=== PATIENT | female | born 1980 | race Caucasian/White ===

== ENCOUNTER 2024-12-01 15:36 | Emergency (ER) | payer OTHER, SELFPAY ==
[2024-12-01 15:45] VITALS: BP 167/96
[2024-12-01 16:07] LABS: % Basophils 0.5 % (0-2); % Immature Granulocytes 0.2 % (0-0.5); % Lymphocytes 36.2 % (20.5-51.1); % Monocytes 5.1 % (1.7-9.3); Absolute Basophils 0.1 10^3/uL (0-0.2); Absolute Eosinophils 0.1 10^3/uL (0-0.7); Absolute Monocytes 0.6 10^3/uL (0.1-0.6); Absolute Neutrophils 6.3 10^3/uL (1.4-6.5); Hematocrit 39.2 % (37.0-47.0); Hemoglobin 12.7 g/dL (12.0-16.0); Mean Corp Hgb Conc. 32.4 g/dL (33.0-37.0); Mean Corpuscular Hgb 25.8 pg (27.0-31.0); Mean Corpuscular Volume 79.5 fL (81.0-99.0); Mean Platelet Volume 11.3 fL (7.4-10.4); Nucleated Red Blood Cells % 0 %; Platelet Count 290 10^3/uL (130-400); Red Blood Cell Count 4.93 10^6/uL (4.20-5.40); Red Cell Dist. Width 13.8 % (11.5-14.5)
[2024-12-01 16:10] LABS: Urine Albumin Negative (Neg - Trace); Urine Bilirubin Negative (Negative); Urine Character Clear (Clear); Urine Color Yellow; Urine Glucose Negative (Negative); Urine Ketone 2+ (Negative); Urine Leukocyte Negative (Negative); Urine Nitrite Negative (Negative); Urine Occult Blood Negative (Negative); Urine Specific Gravity 1.025 (<1.030); Urine Urobilinogen Negative (Neg - 1+)
[2024-12-01 16:23] LABS: HCG, Serum Qualitative Screen Negative
[2024-12-01 16:29] LABS: ALT (SGPT) 16 U/L (0-35); AST (SGOT) 18 U/L (14-36); Albumin 4.4 g/dl (3.5-5.0); Alkaline Phosphatase 69 U/L (38-126); Blood Urea Nitrogen 11 mg/dl (7-17); Calcium 9.5 mg/dl (8.4-10.2); Carbon Dioxide 24 mmol/L (22-30); Chloride 108 mmol/L (98-107); Glucose 116 mg/dl (70-99); Lipase 66 U/L (23-300); Potassium 4.7 mmol/L (3.5-5.1); Sodium 140 mmol/L (135-145); Total Bilirubin 0.9 mg/dl (0.2-1.3); Total Protein 8.1 g/dl (6.3-8.2); eGFR > 60.00
[2024-12-01 17:18] VITALS: BMI 48.2
[2024-12-01 17:26] VITALS: BP 140/83
[2024-12-01 18:00] VITALS: BP 135/85
--- NOTE | 2024-12-01 18:10 | ED.GENMED ---
History of Present Illness
General
Chief Complaint: Abdominal Pain
Source: patient
Exam Limitations: none
Time Seen by Provider: 12/01/24 17:59
Nursing documentation reviewed up to this point in time: agreed with
History of Present Illness
History of Present Illness:
see MDM
Past History
Past History
ED Past Medical History: Other (gastric bypass) and Other (stomach ulcers, depression)
ED Past Surgical History: Other (amrit en y)
Social History
Tobacco: Non-smoker
Alcohol: Occasional
Drug: None
Personal:
Review of Systems
Review of Systems
Allergies reviewed?: Yes
All Other Systems: Not applicable
Phy Exam
Physical Exam
Physical Exam:
GENERAL: Alert , in no apparent distress
EYE: pupils equal and reactive
NECK: Supple
ENT: o/p clr, mmm.
CARDIAC: Regular rate and rhythm .
LUNGS: Clear breath sounds bilaterally, no acute respiratory distress, no wheezes/rales/rhonchi
ABDOMEN: Soft, moderate left upper quadrant tenderness s, no r/g, no cvat, normal bowel sounds
NEUROLOGICAL: Alert and oriented, no focal neuro deficits
SKIN: Warm and dry, skin intact.
MUSCULOSKELETAL: No edema, well perfused. neg sarah's sign
PSYCH: Normal and appropriate interaction.
Course
Orders/Labs/Results
Orders:
Orders
12/01/24 15:50
Test Result ONCE
12/01/24 16:00
Complete Blood Count/With Diff Urgent
Comprehensive Metabolic Panel Urgent
HCG, Serum Qualitative Screen Urgent
Comment: Notify provider if positive test present
Lipase Urgent
Urinalysis Reflex To Culture Urgent
Date Specimen was Collected: 12/01/24
Time Specimen was Collected: 15:50
12/01/24 18:37
0.9% Sodium Chloride 1000 ml [Nss] 1,000 ml IV BOLUS
Iohexol [Omnipaque] See Protocol PO NOW STA
Ondansetron Injectable [Zofran] 4 mg IV NOW STA
Pantoprazole [Protonix IV] 40 mg IV NOW STA
12/01/24 18:38
CT Abd/pel W Iv And Oral Contr Urgent
Comment:
Reason For Exam: luq pain, vomiting; h/o amrit en y
Abnormal Lab Results
12/01/24
16:00
WBC 11.0 H 10^3/uL
(4.8-10.8)
MCV 79.5 L fL
(81.0-99.0)
MCH 25.8 L pg
(27.0-31.0)
MCHC 32.4 L g/dL
(33.0-37.0)
MPV 11.3 H fL
(7.4-10.4)
Absolute Lymphs (auto) 4.0 H 10^3/uL
(1.2-3.4)
Chloride 108 H mmol/L
(98-107)
Glucose 116 H mg/dl
(70-99)
Urine Ketones 2+ A
(Negative)
12/01/24 16:00
12/01/24 16:00
Vital Signs
Initial and Last Documented VS:
Initial Vital Signs
Temp Pulse Resp BP Pulse Ox
36.9 C 104 18 167/96 100
12/01/24 15:45 12/01/24 15:45 12/01/24 15:45 12/01/24 15:45 12/01/24 15:45
Last Documented Vital Signs
Temp Pulse Resp BP Pulse Ox
37.1 C 77 20 145/86 98
12/01/24 21:08 12/01/24 21:08 12/01/24 21:08 12/01/24 21:08 12/01/24 22:00
MDM/Problems Addressed
Differential Diagnosis Includes:
see MDM
MDM/Problems Addressed:
Note:
CHIEF COMPLAINT(S)
Intermittent sharp left-sided abdominal pain with associated vomiting.
HISTORY OF PRESENT ILLNESS
The patient is a 44-year-old female with a history of gastric bypass surgery and stomach ulcers who presents with intermittent sharp pain in the left side of her abdomen, accompanied by vomiting. The symptoms began yesterday, with the pain preceding
the vomiting episodes. The patient notes the pain started while she was awake and increased in intensity throughout the day. She attempted to eat a mini bagel in the morning, thinking it might ease her symptoms, and later consumed some wallace janeth.
Following these attempts, she experienced emesis, but reported momentary relief afterward.
The patient describes the pain as initially sharp, becoming dull but recurrently sharp again, notably exacerbating around 9 PM the previous night. Aggravating factors include lying on her left side, while rocking and using a heating pad have
temporarily provided relief. The pain localized to the left side of her abdomen and has not radiated to her back. She denies any burning during urination or recent fever or chills. The patient reported accompanying symptoms of decreased urination
frequency with effortful voiding, but not typical constipation.
She has a significant past medical history of stomach ulcers, previously treated with endoscopic balloon dilation, and takes pantoprazole 40 mg daily. The patient mentions challenges with maintaining her medication schedule, often not taking it on
an entirely empty stomach. She reports recent weight gain and is diagnosed with pre-diabetes, correlating with a history of high blood pressure and hypothyroidism.
The patient denies daily alcohol consumption, current use of opioid pain medications, or iron supplements. She recalls a past hospitalization for complications post-gastric bypass surgery and recent interventions for suspected stomach ulcers, though
her last endoscopic evaluations revealed no significant findings.
CHRONIC MEDICAL CONDITIONS SIGNIFICANTLY AFFECTING CARE
1. History of gastric bypass surgery with previous complications.
2. Stomach ulcers with previous endoscopic treatments.
3. Hypertension.
4. Pre-diabetes.
5. Hypothyroidism.
PLAN
1. Administer intravenous pantoprazole.
2. Provide intravenous fluids.
3. Administer nausea medication.
4. Increase pantoprazole dosage to 40 mg twice daily, ensuring administration on an empty stomach.
5. Order oral contrast for abdominal imaging, with anticipated results in a few hours.
6. Provide a medication for pain management on request.
7. Advise continuation and adherence to current medications, emphasizing proper timing for pantoprazole intake.
DIFFERENTIAL DIAGNOSIS
The Differential Diagnosis includes, in no particular order and is not limited to:
1. Peptic ulcer disease.
2. Gastritis.
3. Pancreatitis.
4. Partial bowel obstruction.
5. Gastric outlet obstruction.
6. Viral gastroenteritis.
pt reassessed afgter zofran and protonix an dhad no pain
toelrated oral contrast well
ct shows no acute findnigs, fat containing umbilical hernia
no post op complication
continue protonix on empty stomach
bump up to bid if needed
f/u GI
*Pulse Oximetry
Patient hypoxic: no
Comment: 98
*Critical Care Note
Total Time (30-74mins, 75-104mins- exclusive of procedures): Not Applicable
ED Attending Note
-
Portions of this chart may have been created with voice recognition software.� Occasional wrong word or��sound alike� substitutions may have occurred due to the inherent limitations of voice recognition software.
Discharge Plan
Departure
Patient Disposition: Home (Routine Discharge)
Date of Disposition: 12/01/24
Time of Disposition: 21:45
Patient with high blood pressure during this ER visit?: No
Condition: Fair
Discharge Problem:
Gastritis, Abdominal pain
Instructions: Gastritis (DC), Abdominal Pain
Prescriptions:
No Action
pantoprazole [Protonix] 40 mg Tablet,Delayed Release (Dr/Ec)
40 mg PO DAILY
Zoloft
50 mg PO DAILY
Referrals:
Jocelyn Brush DO [Family Provider, Family Practice] - Follow up in 5-7 days
Activity Restrictions/Additional Instructions:
YOUR SYMPTOMS MAY BE DUE TO STOMACH ULCER OR THIS COULD BE VIRAL GASTRITIS
YOUR CAT SCAN DID NOT SHOW ANY ALARMING CAUSE
TRY PROTONIX 40 MG ON EMPTY STOMACH FIRST THING IN THE MORNING WAIT 1 HOUR BEFORE EATING/DRINKING
IF THIS IS NOT HELPING YOU CAN BUMP UP TO TWICE AD AY FOR 2 WEEKS
AVOID ACIDIC FOODS
BLAND DIET
INCREASE TOLERATED
FOLLOW UP WITH YOUR GI
Interventions
Interventions:
*Risk Screen - Suicide Last Done: 12/01/24 15:45
*General Assessment Last Done: 12/01/24 15:45
*Neglect/Abuse Screening Last Done: 12/01/24 17:15
*ED- Fall Risk Assessment Last Done: 12/01/24 17:15
*ED COVID-19 Vaccine History Last Done: 12/01/24 17:15
*Nursing Disposition Last Done: 12/01/24 22:00
WP-Obpffy-Iedwwhwpha Assessment Last Done: 12/01/24 18:58
Discharge Date and Time
Discharge Date/Time: 12/01/24 22:30
Print Language: UGANDAN
[2024-12-01] MEDS: OMNIPAQUE 50 ML PO (18:43)
[2024-12-01] MEDS: ZOFRAN 4 MG IV (18:44)
[2024-12-01] MEDS: PROTONIX IV 40 MG IV (18:44)
[2024-12-01] MEDS: NSS 1000 IV (18:45)
[2024-12-01 18:58] VITALS: BP 144/89
[2024-12-01 21:08] VITALS: BP 145/86
== END 2024-12-01 22:30 | disposition home or self-care (01) ==
LOC: EMR 15:36
PROVIDERS: EMERGENCY PHYSICIAN Emergency Medicine; FAMILY PHYSICIAN Family Medicine
DX: K29.70 Gastritis, unspecified, without bleeding (principal); E03.9 Hypothyroidism, unspecified; I10 Essential (primary) hypertension; R73.03 Prediabetes; Z98.84 Bariatric surgery status; Z87.11 Personal history of peptic ulcer disease
CPT/HCPCS: 96374; 96375; 99284; 74177; 80053; 81003; 83690; 84703; 85025; Q9967